=== PATIENT | male | born 1950 | race Caucasian/White ===

== ENCOUNTER 2024-03-30 18:24 | Inpatient (IN) | payer MEDICARE, MEDICAID ==
[~2024-03-30] VITALS: Ht 172.7 cm; Wt 54.4 kg
[~2024-03-30 18:24] MED LIST: DILT120C88 PO; QUET25TA PO
[2024-03-30] MEDS ORDERED: OCTREOTIDE 1,000 MCG in SODIUM CHLORIDE 0.9% 100 ML IV ONE (18:45)
[2024-03-30] MEDS ORDERED: PANTOPRAZOLE SODIUM 40 MG/VIAL IV ONE (18:45)
[2024-03-30] MEDS ORDERED: CEFTRIAXONE 1GM/50ML 50 ML IV ONE (18:45)
[2024-03-30] MEDS: OCTREOTIDE 1,000 MCG in SODIUM CHLORIDE 0.9% 100 ML IV SCH (20:34)
[2024-03-30] MEDS: PANTOPRAZOLE SODIUM 40 MG/VIAL IV NR (20:58)
[2024-03-30] MEDS: CEFTRIAXONE 1GM/50ML 50 ML IV NR (20:58)
[2024-03-30 21:17] LABS: HEMATOCRIT. 46.6 % (42.0-52.0); HEMOGLOBIN. 15.3 g/dL (14.0-18.0); MEAN CORPUSCULAR HEMOGLOBIN 28.1 pg (28.0-32.0); MEAN CORPUSCULAR HGB CONC 32.9 g/dL (31.0-37.0); MEAN CORPUSCULAR VOLUME 85.3 fL (80.0-94.0); MEAN PLATELET VOLUME 8.9 fl (7.4-10.4); PLATELET 186 x1000/uL (130-400); RED BLOOD CELL COUNT 5.46 mill/uL (4.7-6.1); RED CELL DISTRIBUTION WIDTH 17.4 % (11.6-14.6); WHITE BLOOD COUNT 12.1 x1000/uL (4.5-11.0)
[2024-03-30 21:19] LABS: DIFFERENTIAL COMMENT 1
[2024-03-30 21:26] LABS: CHLORIDE 102 mEq/L (98-107); SODIUM 139 mEq/L (136-145)
[2024-03-30 21:27] LABS: CALCIUM 10.2 mg/dL (8.7-10.4); CARBON DIOXIDE 29 mEq/L (21-32)
[2024-03-30 21:30] LABS: PROTHROMBIN TIME 10.8 sec (9.6-11.0)
[2024-03-30 21:32] LABS: CREATININE 1.1 mg/dL (0.6-1.3); GLUCOSE 137 mg/dL (70-105)
[2024-03-30 21:46] LABS: UREA NITROGEN BLOOD 22 mg/dL (9-23)
[2024-03-30 21:48] LABS: ALANINE AMINOTRANSFERASE 19 IU/L (10-49); ALBUMIN 4.6 g/dL (3.2-4.8); ASPARTATE AMINOTRANSFERASE 20 IU/L (<34); BILIRUBIN DIRECT 0.2 mg/dL (<=3.0)
[2024-03-30 21:49] LABS: BILIRUBIN TOTAL 0.7 mg/dL (0.1-1.0); PROTEIN TOTAL 8.6 g/dL (6.0-8.3)
[2024-03-30 22:26] LABS: PLATELET ESTIMATE NORMAL
[2024-03-30 22:27] LABS: ANISOCYTOSIS 1+
[2024-03-30] MEDS ORDERED: NICARDIPINE 50 MG in SODIUM CHLORIDE 0.9% 230 ML IV PRN (23:30)
[2024-03-30] MEDS ORDERED: MORPHINE SULFATE 2 MG/ML INJ (NOT FOR IM USE) IV PRN (23:30)
[2024-03-30] MEDS: ONDANSETRON HCL 4MG/2ML INJ IV PRN (23:53)
[2024-03-31] VITALS (71 sets, daily range): BP systolic 97–171; BP diastolic 67–104; PULSE 85–101; RESP 0–25; TEMP 36.61404–36.9474; O2SAT 87–97
[2024-03-31] MEDS ORDERED: PANTOPRAZOLE 80 MG in SODIUM CHLORIDE 0.9% 100 ML IV SCH
[2024-03-31] MEDS: NICARDIPINE 50 MG in SODIUM CHLORIDE 0.9% 230 ML IV PRN (00:10)
[2024-03-31] MEDS: PANTOPRAZOLE 80 MG in SODIUM CHLORIDE 0.9% 100 ML IV SCH (00:34)
[2024-03-31] MEDS: SODIUM CHLORIDE 0.9% 1,000 ML IV SCH (00:48)
[2024-03-31 03:00] LABS: *AMPHETAMINES SCREEN URINE NEGATIVE (NEGATIVE); *BARBITURATES SCREEN URINE NEGATIVE (NEGATIVE); *BENZODIAZEPINES SCREEN URINE NEGATIVE (NEGATIVE); *COCAINE SCREEN URINE NEGATIVE (NEGATIVE)
[2024-03-31 03:01] LABS: CANNABINOID URINE SCREEN NEGATIVE (NEGATIVE); ECSTASY MDMA SCREEN URINE NEGATIVE (NEGATIVE); METHADONE URINE SCREEN NEGATIVE (NEGATIVE); OPIATES URINE SCREEN NEGATIVE (NEGATIVE); PHENCYCLIDINE URINE SCREEN NEGATIVE (NEGATIVE)
[2024-03-31] MEDS: OCTREOTIDE 1,000 MCG in SODIUM CHLORIDE 0.9% 98 ML IV SCH (10:10)
[2024-03-31] MEDS: PIPERACILLIN/TAZO 3.375G/50ML 50 ML IV SCH (10:12)
[2024-03-31 13:08] LABS: HEMATOCRIT 42.4 % (42.0-52.0); HEMOGLOBIN 13.7 g/dL (14.0-18.0)
[2024-03-31 13:23] LABS: CREATINE KINASE MB FRACTION 1.1 ng/mL (0.5-3.6)
[2024-03-31 13:24] LABS: TROPONIN I HIGH SENSITIVITY 10 ng/L (3.0-53)
[2024-03-31 13:25] LABS: CREATINE KINASE 38 IU/L (46-171)
[2024-03-31 18:33] LABS: HEMATOCRIT 42.5 % (42.0-52.0); HEMOGLOBIN 14.3 g/dL (14.0-18.0)
[2024-03-31] MEDS: PANTOPRAZOLE SODIUM 40 MG/VIAL IV SCH (20:26)
[2024-03-31 22:28] LABS: CREATINE KINASE MB FRACTION 1.5 ng/mL (0.5-3.6)
[2024-04-01] VITALS (96 sets, daily range): BP systolic 107–152; BP diastolic 64–110; PULSE 84–105; RESP 9–24; TEMP 36.55848–37.2252; O2SAT 86–96
[2024-04-01 00:32] LABS: HEMATOCRIT 43.1 % (42.0-52.0); HEMOGLOBIN 14.2 g/dL (14.0-18.0)
[2024-04-01 05:44] LABS: PARTIAL THROMBOPLASTIN TIME 25.5 sec (23.4-31.0); PROTHROMBIN TIME 11.2 sec (9.6-11.0)
[2024-04-01 05:52] LABS: HEMOGLOBIN. 13.8 g/dL (14.0-18.0); MEAN CORPUSCULAR HEMOGLOBIN 28.5 pg (28.0-32.0); MEAN CORPUSCULAR HGB CONC 32.9 g/dL (31.0-37.0); MEAN CORPUSCULAR VOLUME 86.7 fL (80.0-94.0); MEAN PLATELET VOLUME 9.1 fl (7.4-10.4); PLATELET 185 x1000/uL (130-400); RED BLOOD CELL COUNT 4.84 mill/uL (4.7-6.1); RED CELL DISTRIBUTION WIDTH 17.1 % (11.6-14.6); WHITE BLOOD COUNT 11.2 x1000/uL (4.5-11.0)
[2024-04-01 05:53] LABS: CHLORIDE 108 mEq/L (98-107); POTASSIUM 3.9 mEq/L (3.5-5.1); SODIUM 145 mEq/L (136-145)
[2024-04-01 05:56] LABS: CALCIUM 9.2 mg/dL (8.7-10.4); CARBON DIOXIDE 28 mEq/L (21-32)
[2024-04-01 06:01] LABS: CREATININE 1.2 mg/dL (0.6-1.3); GLUCOSE 147 mg/dL (70-105)
[2024-04-01 06:02] LABS: ALBUMIN 4.2 g/dL (3.2-4.8); UREA NITROGEN BLOOD 16 mg/dL (9-23)
[2024-04-01 06:03] LABS: ALANINE AMINOTRANSFERASE 14 IU/L (10-49); ASPARTATE AMINOTRANSFERASE 14 IU/L (<34)
[2024-04-01 06:04] LABS: BILIRUBIN DIRECT 0.3 mg/dL (<=3.0); BILIRUBIN TOTAL 1.1 mg/dL (0.1-1.0); PROTEIN TOTAL 7.8 g/dL (6.0-8.3)
[2024-04-01 06:29] LABS: DIFFERENTIAL COMMENT 1
[2024-04-01] MEDS: IOHEXOL-350 100 ML BOTTLE ONE (08:23)
[2024-04-01] MEDS: NICARDIPINE 40MG/200ML PREMIX 200 ML IV PRN (09:01)
[2024-04-01 12:36] LABS: HEMATOCRIT 39.9 % (42.0-52.0); HEMOGLOBIN 13.1 g/dL (14.0-18.0)
[2024-04-01 12:45] LABS: ANISOCYTOSIS 1+; PLATELET ESTIMATE NORMAL
[2024-04-01 21:01] LABS: HEMATOCRIT 41.8 % (42.0-52.0); HEMOGLOBIN 13.2 g/dL (14.0-18.0)
[2024-04-02] VITALS (82 sets, daily range): BP systolic 89–157; BP diastolic 34–103; PULSE 69–100; RESP 10–30; TEMP 36.3918–37.83636; O2SAT 78–97
[2024-04-02 01:09] LABS: HEMATOCRIT 36.5 % (42.0-52.0)
[2024-04-02 05:01] LABS: HEMATOCRIT. 37.3 % (42.0-52.0); HEMOGLOBIN. 12.2 g/dL (14.0-18.0); MEAN CORPUSCULAR HEMOGLOBIN 28.3 pg (28.0-32.0); MEAN CORPUSCULAR HGB CONC 32.7 g/dL (31.0-37.0); MEAN CORPUSCULAR VOLUME 86.6 fL (80.0-94.0); PLATELET 174 x1000/uL (130-400); RED BLOOD CELL COUNT 4.31 mill/uL (4.7-6.1); RED CELL DISTRIBUTION WIDTH 17.5 % (11.6-14.6); WHITE BLOOD COUNT 11.4 x1000/uL (4.5-11.0)
[2024-04-02 05:02] LABS: POTASSIUM 3.4 mEq/L (3.5-5.1)
[2024-04-02 05:03] LABS: CALCIUM 8.8 mg/dL (8.7-10.4)
[2024-04-02 05:08] LABS: CREATININE 1.3 mg/dL (0.6-1.3)
[2024-04-02 06:04] LABS: DIFFERENTIAL COMMENT 1
[2024-04-02] MEDS: KCL 20MEQ/100ML PREMIX 100 ML IV NR (06:53)
[2024-04-02 11:10] LABS: ANISOCYTOSIS 1+; PLATELET ESTIMATE NORMAL
[2024-04-02] MEDS: LABETALOL IV SCH (12:18)
[2024-04-02] MEDS: DEXT 5% IV SCH (12:18)
[2024-04-02] MEDS: WATER IV SCH (12:18)
[2024-04-02 12:34] LABS: HEMATOCRIT 36.6 % (42.0-52.0)
[2024-04-02 13:08] LABS: BG BASE EXCESS -0.3 mmol/L (-2.0-3.0); BG CARBOXYHEMOGLOBIN 0.6 % (0.5-1.5); BG DEOXYHEMOGLOBIN 8.2 % (0.0-5.0); BG FRACTION INSPIRED OXYGEN 36; BG HCO3 ACT 24.2 mmol/L (21.0-28.0); BG METHEMOGLOBIN 0.3 % (0.5-1.5); BG OXYGEN SATURATION 91.7 % (94.0-98.0); BG OXYHEMOGLOBIN 90.9 % (94.0-98.0); BG PCO2 39.1 mmHg (35.0-48.0); BG PO2 61.9 mmHg (83.0-108.0); BG SAMPLE SITE RIGHT RADIAL; BG TOTAL HEMOGLOBIN 12.4 g/dL (13.5-17.5); BG VENT MODE NASAL CANNULA
[2024-04-02] MEDS ORDERED: NALOXONE HCL 0.4MG/ML VIAL IV PRN (14:00)
[2024-04-02] MEDS: THIAMINE HCL 200 MG in SODIUM CHLORIDE 0.9% 98 ML IV SCH (16:39)
[2024-04-02] MEDS: LORAZEPAM 2MG/ML INJ IV PRN (21:33)
[2024-04-02 23:22] LABS: HEMATOCRIT 32.1 % (42.0-52.0); HEMOGLOBIN 10.5 g/dL (14.0-18.0)
[2024-04-03] VITALS (102 sets, daily range): BP systolic 80–186; BP diastolic 43–128; PULSE 54–98; RESP 14–38; TEMP 36.61404–37.11408; O2SAT 83–99
[2024-04-03] MEDS: DEXT 5% IV PRN (02:16)
[2024-04-03] MEDS: WATER IV PRN (02:16)
[2024-04-03] MEDS: LABETALOL IV PRN (02:16)
[2024-04-03] MEDS: NICARDIPINE 40MG/200ML PREMIX 200 ML IV SCH (02:23)
[2024-04-03 06:01] LABS: CARBON DIOXIDE 28 mEq/L (21-32); CHLORIDE 112 mEq/L (98-107); POTASSIUM 3.2 mEq/L (3.5-5.1); SODIUM 147 mEq/L (136-145)
[2024-04-03 06:02] LABS: CALCIUM 8.6 mg/dL (8.7-10.4)
[2024-04-03 06:03] LABS: PROTHROMBIN TIME 11.6 sec (9.6-11.0)
[2024-04-03 06:06] LABS: CREATININE 1.3 mg/dL (0.6-1.3)
[2024-04-03 06:07] LABS: GLUCOSE 135 mg/dL (70-105); UREA NITROGEN BLOOD 16 mg/dL (9-23)
[2024-04-03 06:08] LABS: ALANINE AMINOTRANSFERASE 7 IU/L (10-49); ASPARTATE AMINOTRANSFERASE 12 IU/L (<34)
[2024-04-03 06:09] LABS: ALBUMIN 3.7 g/dL (3.2-4.8); BILIRUBIN DIRECT 0.4 mg/dL (<=3.0); BILIRUBIN TOTAL 1.3 mg/dL (0.1-1.0); PROTEIN TOTAL 6.8 g/dL (6.0-8.3)
[2024-04-03 06:14] LABS: HEMOGLOBIN. 10.3 g/dL (14.0-18.0); MEAN CORPUSCULAR HEMOGLOBIN 28.8 pg (28.0-32.0); MEAN CORPUSCULAR HGB CONC 33.2 g/dL (31.0-37.0); MEAN CORPUSCULAR VOLUME 86.6 fL (80.0-94.0); PLATELET 138 x1000/uL (130-400); RED BLOOD CELL COUNT 3.58 mill/uL (4.7-6.1); WHITE BLOOD COUNT 12.2 x1000/uL (4.5-11.0)
[2024-04-03] MEDS: DEXTROSE 5% WATER 1,000 ML IV SCH (06:30)
[2024-04-03] MEDS: FUROSEMIDE 40MG/4ML VIAL IVP NR (06:40)
[2024-04-03 06:49] LABS: BG BASE EXCESS 1.3 mmol/L (-2.0-3.0); BG CARBOXYHEMOGLOBIN 0.5 % (0.5-1.5); BG DEOXYHEMOGLOBIN 8.3 % (0.0-5.0); BG FRACTION INSPIRED OXYGEN 40; BG HCO3 ACT 26.3 mmol/L (21.0-28.0); BG METHEMOGLOBIN 0.3 % (0.5-1.5); BG OXYGEN SATURATION 91.6 % (94.0-98.0); BG OXYHEMOGLOBIN 90.9 % (94.0-98.0); BG PCO2 43.7 mmHg (35.0-48.0); BG PH 7.398 (7.350-7.450); BG PO2 63.8 mmHg (83.0-108.0); BG SAMPLE SITE RIGHT RADIAL; BG TOTAL HEMOGLOBIN 11.4 g/dL (13.5-17.5); BG VENT MODE NASAL CANNULA
[2024-04-03 07:03] LABS: DIFFERENTIAL COMMENT 1
[2024-04-03 08:11] LABS: PLATELET ESTIMATE NORMAL
[2024-04-03 11:28] LABS: BG BASE EXCESS 2.3 mmol/L (-2.0-3.0); BG DEOXYHEMOGLOBIN 2.4 % (0.0-5.0); BG FRACTION INSPIRED OXYGEN 100; BG METHEMOGLOBIN 0.3 % (0.5-1.5); BG OXYGEN SATURATION 97.6 % (94.0-98.0); BG OXYHEMOGLOBIN 97.3 % (94.0-98.0); BG PCO2 48.2 mmHg (35.0-48.0); BG PH 7.382 (7.350-7.450); BG SAMPLE SITE LEFT BRACHIAL; BG TOTAL HEMOGLOBIN 11.5 g/dL (13.5-17.5); BG TOTAL RESPIRATORY RATE 17 b/min; BG VENT MODE VENT - AC
[2024-04-03] MEDS: PROPOFOL 10MG/ML 100ML 100 ML IV SCH (12:57)
[2024-04-03] MEDS: IPRATROPIUM/ALBUTEROL 0.5-3(2.5)MG/3ML NEB NEB PRN (13:01)
[2024-04-03 16:09] LABS: BG BASE EXCESS 0.6 mmol/L (-2.0-3.0); BG CARBOXYHEMOGLOBIN 0.3 % (0.5-1.5); BG DEOXYHEMOGLOBIN 10.1 % (0.0-5.0); BG FRACTION INSPIRED OXYGEN 100; BG HCO3 ACT 24.9 mmol/L (21.0-28.0); BG METHEMOGLOBIN 0.3 % (0.5-1.5); BG OXYGEN SATURATION 89.8 % (94.0-98.0); BG OXYHEMOGLOBIN 89.3 % (94.0-98.0); BG PCO2 38.6 mmHg (35.0-48.0); BG PH 7.427 (7.350-7.450); BG SAMPLE SITE RIGHT RADIAL; BG TOTAL HEMOGLOBIN 11.8 g/dL (13.5-17.5); BG VENT MODE VENT - AC
[2024-04-03] MEDS: KCL 20MEQ/100ML PREMIX 100 ML IV SCH (16:59)
[2024-04-04] VITALS (104 sets, daily range): BP systolic 86–144; BP diastolic 53–101; PULSE 57–95; RESP 16–34; TEMP 36.44736–37.44744; O2SAT 89–100
[2024-04-04 05:50] LABS: BASOPHILS % 0.2 % (0.0-2.0); EOSINOPHILS % 1.2 % (0.0-5.0); HEMATOCRIT. 29.2 % (42.0-52.0); HEMOGLOBIN. 9.8 g/dL (14.0-18.0); LYMPHOCYTES % 7.8 % (20.0-50.0); MEAN CORPUSCULAR HEMOGLOBIN 29.3 pg (28.0-32.0); MEAN CORPUSCULAR HGB CONC 33.6 g/dL (31.0-37.0); MEAN CORPUSCULAR VOLUME 87.3 fL (80.0-94.0); MEAN PLATELET VOLUME 9.6 fl (7.4-10.4); MONOCYTES % 8.6 % (2.0-8.0); NEUTROPHILS % 82.2 % (40.0-76.0); PLATELET 125 x1000/uL (130-400); RED BLOOD CELL COUNT 3.35 mill/uL (4.7-6.1); RED CELL DISTRIBUTION WIDTH 17.3 % (11.6-14.6); WHITE BLOOD COUNT 8.5 x1000/uL (4.5-11.0)
[2024-04-04 06:04] LABS: INR 1.1; PROTHROMBIN TIME 11.7 sec (9.6-11.0)
[2024-04-04 06:46] LABS: CHLORIDE 116 mEq/L (98-107); POTASSIUM 3.2 mEq/L (3.5-5.1); SODIUM 145 mEq/L (136-145)
[2024-04-04 06:47] LABS: CARBON DIOXIDE 24 mEq/L (21-32)
[2024-04-04 06:52] LABS: GLUCOSE 124 mg/dL (70-105); UREA NITROGEN BLOOD 41 mg/dL (9-23)
[2024-04-04 06:54] LABS: ALANINE AMINOTRANSFERASE < 7 IU/L (10-49); ALBUMIN 3.1 g/dL (3.2-4.8); ASPARTATE AMINOTRANSFERASE 13 IU/L (<34); BILIRUBIN TOTAL 0.8 mg/dL (0.1-1.0); PROTEIN TOTAL 5.7 g/dL (6.0-8.3)
[2024-04-04 07:39] LABS: CREATININE 1.9 mg/dL (0.6-1.3)
[2024-04-04] MEDS ORDERED: PROPOFOL 10MG/ML 100ML 100 ML IV PRN (10:30)
[2024-04-04] MEDS: SODIUM CHL 0.45% + KCL 20MEQ/L 1,000 ML IV SCH (10:55)
[2024-04-04 14:43] LABS: BG BASE EXCESS -0.7 mmol/L (-2.0-3.0); BG CARBOXYHEMOGLOBIN 0.3 % (0.5-1.5); BG FRACTION INSPIRED OXYGEN 80; BG OXYHEMOGLOBIN 94.7 % (94.0-98.0); BG PCO2 39.7 mmHg (35.0-48.0); BG PH 7.399 (7.350-7.450); BG PO2 72.3 mmHg (83.0-108.0); BG SAMPLE SITE RIGHT RADIAL; BG TOTAL HEMOGLOBIN 10.7 g/dL (13.5-17.5); BG VENT MODE VENT - AC
[2024-04-05] VITALS (106 sets, daily range): BP systolic 99–159; BP diastolic 57–86; PULSE 67–106; RESP 15–42; TEMP 36.9474–38.6142; O2SAT 91–100
[2024-04-05] MEDS: PROPOFOL 10MG/ML 100ML 100 ML IV PRN ×2 (02:06→12:19)
[2024-04-05 06:14] LABS: HEMOGLOBIN. 9.7 g/dL (14.0-18.0); MEAN CORPUSCULAR HGB CONC 32.4 g/dL (31.0-37.0); MEAN CORPUSCULAR VOLUME 86.3 fL (80.0-94.0); MEAN PLATELET VOLUME 9.8 fl (7.4-10.4); PLATELET 131 x1000/uL (130-400); RED BLOOD CELL COUNT 3.48 mill/uL (4.7-6.1); RED CELL DISTRIBUTION WIDTH 17.9 % (11.6-14.6); WHITE BLOOD COUNT 11.2 x1000/uL (4.5-11.0)
[2024-04-05 06:45] LABS: DIFFERENTIAL COMMENT 1
[2024-04-05 10:06] LABS: CALCIUM 8.2 mg/dL (8.7-10.4); POTASSIUM 3.1 mEq/L (3.5-5.1)
[2024-04-05 10:12] LABS: CREATININE 1.2 mg/dL (0.6-1.3)
[2024-04-05] MEDS ORDERED: POTASSIUM CHLORIDE 40 MEQ in DEXT 5% WATER 230 ML IV STA (11:49)
[2024-04-05] MEDS: KCL 20MEQ/100ML X 2 FOR TOTAL KCL 40MEQ/200ML IV SCH (12:17)
[2024-04-05] MEDS ORDERED: PROPOFOL 200MG/20ML VIAL IV ONE (14:10)
[2024-04-05 14:18] LABS: PLATELET ESTIMATE NORMAL
[2024-04-05] MEDS: NICARDIPINE 40MG/200ML PREMIX 200 ML IV PRN (15:49)
[2024-04-05] MEDS ORDERED: ACETAMINOPHEN 650MG/20.3ML UDC PO PRN (21:45)
[2024-04-05] MEDS: ACETAMINOPHEN 650MG SUPP PR PRN (22:19)
[2024-04-05 23:01] LABS: CLARITY URINE CLEAR (CLEAR); COLOR URINE YELLOW (YELLOW); GLUCOSE URINE NEGATIVE (NEGATIVE); KETONES URINE 2+ (NEGATIVE); LEUKOCYTE ESTERASE URINE NEGATIVE (NEGATIVE); NITRITE URINE NEGATIVE (NEGATIVE); OCCULT BLOOD URINE NEGATIVE (NEGATIVE); PH URINE 5.5 (4.5-8.0); PROTEIN URINE TRACE (NEGATIVE); SPECIFIC GRAVITY URINE 1.013 (1.005-1.030); UROBILINOGEN URINE 0.2 E.U./dL (0.2-1.0)
[2024-04-05 23:20] LABS: BACTERIA URINE NONE SEEN; RBC URINE NONE SEEN /hpf (0-2); SQUAMOUS EPITHELIAL CELL URINE FEW /lpf (RARE/1+); WBC URINE NONE SEEN /hpf (0-2)
[2024-04-05 23:25] LABS: WHITE BLOOD CELL CASTS URINE NONE SEEN /lpf
[2024-04-06] VITALS (94 sets, daily range): BP systolic 100–148; BP diastolic 58–115; PULSE 69–89; RESP 14–35; TEMP 36.89184–38.39196; O2SAT 94–100
[2024-04-06 08:48] LABS: CHLORIDE 111 mEq/L (98-107); POTASSIUM 3.5 mEq/L (3.5-5.1); SODIUM 144 mEq/L (136-145)
[2024-04-06 08:49] LABS: CALCIUM 8.3 mg/dL (8.7-10.4); CARBON DIOXIDE 20 mEq/L (21-32)
[2024-04-06 08:54] LABS: CREATININE 1.1 mg/dL (0.6-1.3); GLUCOSE 72 mg/dL (70-105)
[2024-04-06 08:55] LABS: TRIGLYCERIDE 252 mg/dL (0-150); UREA NITROGEN BLOOD 11 mg/dL (9-23)
[2024-04-06 08:57] LABS: PHOSPHORUS 2.2 mg/dL (2.5-4.9)
[2024-04-06 10:04] LABS: HEMATOCRIT. 28.9 % (42.0-52.0); HEMOGLOBIN. 9.6 g/dL (14.0-18.0); MEAN CORPUSCULAR HEMOGLOBIN 28.6 pg (28.0-32.0); MEAN CORPUSCULAR VOLUME 86.6 fL (80.0-94.0); MEAN PLATELET VOLUME 9.4 fl (7.4-10.4); PLATELET 137 x1000/uL (130-400); RED BLOOD CELL COUNT 3.34 mill/uL (4.7-6.1); RED CELL DISTRIBUTION WIDTH 17.2 % (11.6-14.6)
[2024-04-06 10:10] LABS: DIFFERENTIAL COMMENT 1; WHITE BLOOD COUNT 13.1 x1000/uL (4.5-11.0)
[2024-04-06] MEDS ORDERED: POTASSIUM CHLORIDE 20 MEQ in DEXT 5% WATER 90 ML IV ONE (10:15)
[2024-04-06 10:23] LABS: CARBON DIOXIDE 21 mEq/L (21-32); CHLORIDE 110 mEq/L (98-107); POTASSIUM 3.5 mEq/L (3.5-5.1); SODIUM 142 mEq/L (136-145)
[2024-04-06 10:24] LABS: CALCIUM 8.3 mg/dL (8.7-10.4)
[2024-04-06 10:29] LABS: GLUCOSE 91 mg/dL (70-105); UREA NITROGEN BLOOD 11 mg/dL (9-23)
[2024-04-06] MEDS: KCL 20MEQ/100ML PREMIX 100 ML IV ONE (11:09)
[2024-04-06] MEDS: SUCRALFATE 1G TABLET NG SCH (16:56)
[2024-04-06] MEDS: METOCLOPRAMIDE HCL 10MG/2ML VIAL IV SCH (18:55)
[2024-04-06] MEDS ORDERED: PROPOFOL 10MG/ML 100ML 100 ML IV SCH (22:00)
[2024-04-07] VITALS (102 sets, daily range): BP systolic 95–159; BP diastolic 60–101; PULSE 65–94; RESP 15–33; TEMP 36.83628–37.66968; O2SAT 94–100
[2024-04-07 01:35] LABS: PLATELET ESTIMATE NORMAL
[2024-04-07] MEDS: PROPOFOL 10MG/ML 100ML 100 ML IV PRN ×2 (03:17→08:33)
[2024-04-07 05:41] LABS: HEMATOCRIT. 26.7 % (42.0-52.0); HEMOGLOBIN. 9.2 g/dL (14.0-18.0); MEAN CORPUSCULAR HEMOGLOBIN 29.9 pg (28.0-32.0); MEAN CORPUSCULAR HGB CONC 34.6 g/dL (31.0-37.0); MEAN CORPUSCULAR VOLUME 86.4 fL (80.0-94.0); MEAN PLATELET VOLUME 10.1 fl (7.4-10.4); PLATELET 130 x1000/uL (130-400); RED BLOOD CELL COUNT 3.09 mill/uL (4.7-6.1); RED CELL DISTRIBUTION WIDTH 17.2 % (11.6-14.6); WHITE BLOOD COUNT 10.6 x1000/uL (4.5-11.0)
[2024-04-07 05:59] LABS: DIFFERENTIAL COMMENT 1
[2024-04-07 06:25] LABS: CHLORIDE 111 mEq/L (98-107); POTASSIUM 3.4 mEq/L (3.5-5.1); SODIUM 143 mEq/L (136-145)
[2024-04-07 06:26] LABS: CARBON DIOXIDE 21 mEq/L (21-32)
[2024-04-07 06:31] LABS: CREATININE 0.9 mg/dL (0.6-1.3); GLUCOSE 77 mg/dL (70-105)
[2024-04-07 06:32] LABS: TRIGLYCERIDE 268 mg/dL (0-150); UREA NITROGEN BLOOD 8 mg/dL (9-23)
[2024-04-07 06:34] LABS: PHOSPHORUS 2.4 mg/dL (2.5-4.9)
[2024-04-07 07:38] LABS: ANISOCYTOSIS 1+; PLATELET ESTIMATE NORMAL
[2024-04-07] MEDS: MAGNESIUM 2 G PREMIX 50 ML IV NR (12:43)
[2024-04-07] MEDS: POTASSIUM PHOSPHATE 15 MMOL in DEXT 5% WATER 245 ML IV NR (12:43)
[2024-04-07] MEDS: AMLODIPINE 5MG TABLET PO SCH (21:08)
[2024-04-07] MEDS: MORPHINE SULFATE 2 MG/ML INJ (NOT FOR IM USE) IV PRN (23:12)
[2024-04-08] VITALS (103 sets, daily range): BP systolic 87–145; BP diastolic 59–92; PULSE 78–96; RESP 15–26; TEMP 36.72516–37.72524; O2SAT 95–100
[2024-04-08] MEDS: PROPOFOL 10MG/ML 100ML 100 ML IV PRN ×2 (02:49→22:33)
[2024-04-08 06:03] LABS: BASOPHILS % 0.7 % (0.0-2.0); EOSINOPHILS % 6.9 % (0.0-5.0); HEMATOCRIT. 29.1 % (42.0-52.0); LYMPHOCYTES % 6.9 % (20.0-50.0); MEAN CORPUSCULAR HEMOGLOBIN 29.2 pg (28.0-32.0); MEAN CORPUSCULAR HGB CONC 34.3 g/dL (31.0-37.0); MEAN CORPUSCULAR VOLUME 85.3 fL (80.0-94.0); MEAN PLATELET VOLUME 9.4 fl (7.4-10.4); MONOCYTES % 11.7 % (2.0-8.0); NEUTROPHILS % 73.8 % (40.0-76.0); PLATELET 167 x1000/uL (130-400); RED BLOOD CELL COUNT 3.41 mill/uL (4.7-6.1)
[2024-04-08 06:04] LABS: CARBON DIOXIDE 24 mEq/L (21-32); CHLORIDE 108 mEq/L (98-107); POTASSIUM 3.5 mEq/L (3.5-5.1); SODIUM 141 mEq/L (136-145)
[2024-04-08 06:05] LABS: CALCIUM 8.3 mg/dL (8.7-10.4); DIFFERENTIAL COMMENT 1
[2024-04-08 06:10] LABS: CREATININE 0.8 mg/dL (0.6-1.3); GLUCOSE 102 mg/dL (70-105); TRIGLYCERIDE 297 mg/dL (0-150); UREA NITROGEN BLOOD 6 mg/dL (9-23)
[2024-04-08 06:12] LABS: PHOSPHORUS 2.7 mg/dL (2.5-4.9)
[2024-04-08] MEDS ORDERED: NALOXONE HCL 0.4MG/ML VIAL IV PRN (09:30)
[2024-04-08] MEDS: POTASSIUM CHLORIDE 20MEQ TABLET SR PO NR (10:10)
[2024-04-09] VITALS (83 sets, daily range): BP systolic 73–153; BP diastolic 56–89; PULSE 72–103; RESP 14–26; TEMP 36.50292–37.72524; O2SAT 92–100
[2024-04-09] MEDS: DEXT 5%/0.45% NACL 1000ML 1,000 ML IV SCH (00:27)
[2024-04-09 05:49] LABS: HEMATOCRIT. 28.1 % (42.0-52.0); HEMOGLOBIN. 9.7 g/dL (14.0-18.0); MEAN CORPUSCULAR HEMOGLOBIN 29.2 pg (28.0-32.0); MEAN CORPUSCULAR HGB CONC 34.5 g/dL (31.0-37.0); MEAN CORPUSCULAR VOLUME 84.7 fL (80.0-94.0); MEAN PLATELET VOLUME 9.8 fl (7.4-10.4); PLATELET 195 x1000/uL (130-400); RED BLOOD CELL COUNT 3.32 mill/uL (4.7-6.1); RED CELL DISTRIBUTION WIDTH 16.9 % (11.6-14.6); WHITE BLOOD COUNT 7.7 x1000/uL (4.5-11.0)
[2024-04-09 05:50] LABS: CARBON DIOXIDE 26 mEq/L (21-32); CHLORIDE 109 mEq/L (98-107); POTASSIUM 3.6 mEq/L (3.5-5.1); SODIUM 141 mEq/L (136-145)
[2024-04-09 05:51] LABS: CALCIUM 8.4 mg/dL (8.7-10.4)
[2024-04-09 05:55] LABS: CREATININE 0.9 mg/dL (0.6-1.3)
[2024-04-09 05:56] LABS: GLUCOSE 121 mg/dL (70-105); TRIGLYCERIDE 262 mg/dL (0-150); UREA NITROGEN BLOOD 8 mg/dL (9-23)
[2024-04-09 05:58] LABS: PHOSPHORUS 3.1 mg/dL (2.5-4.9)
[2024-04-09 06:02] LABS: INR 0.9; PARTIAL THROMBOPLASTIN TIME 28.5 sec (23.4-31.0); PROTHROMBIN TIME 10.1 sec (9.6-11.0)
[2024-04-09 06:37] LABS: DIFFERENTIAL COMMENT 1
[2024-04-09] MEDS ORDERED: IODIXANOL 320 MG/ML 150ML BOTTLE IV ONE (11:52)
[2024-04-09] MEDS ORDERED: IODIXANOL 320MG/ML 100 ML BOTTLE IV ONE (11:52)
[2024-04-09] MEDS ORDERED: HEPARIN 1000 UNITS/ML 10ML ONE (11:52)
[2024-04-09] MEDS ORDERED: LIDOCAINE HCL 1% 20ML VIAL ONE (11:56)
[2024-04-09 12:15] LABS: ANISOCYTOSIS 1+; PLATELET ESTIMATE NORMAL
[2024-04-09] MEDS ORDERED: FENTANYL CITRATE/PF 50MCG/ML 2ML VIAL ONE (12:49)
[2024-04-09] MEDS ORDERED: CEFAZOLIN SODIUM 1000MG/VIAL ONE (12:50)
[2024-04-09] MEDS ORDERED: STERILE WATER FOR INJECTION 10ML VIAL ONE (12:51)
[2024-04-09] MEDS ORDERED: PROTAMINE SULFATE 10MG/ML VIAL 25ML IV ONE (14:37)
[2024-04-10] VITALS (104 sets, daily range): BP systolic 89–155; BP diastolic 58–116; PULSE 74–111; RESP 13–37; TEMP 36.3918–37.83636; O2SAT 93–100
[2024-04-10] MEDS ORDERED: PROPOFOL 10MG/ML 100ML 100 ML IV PRN
[2024-04-10 06:09] LABS: HEMATOCRIT. 30.7 % (42.0-52.0); HEMOGLOBIN. 10.4 g/dL (14.0-18.0); MEAN CORPUSCULAR HEMOGLOBIN 29.2 pg (28.0-32.0); MEAN CORPUSCULAR VOLUME 85.9 fL (80.0-94.0); MEAN PLATELET VOLUME 9.8 fl (7.4-10.4); PLATELET 198 x1000/uL (130-400); RED BLOOD CELL COUNT 3.58 mill/uL (4.7-6.1); RED CELL DISTRIBUTION WIDTH 16.6 % (11.6-14.6); WHITE BLOOD COUNT 8.5 x1000/uL (4.5-11.0)
[2024-04-10 06:41] LABS: CHLORIDE 109 mEq/L (98-107); POTASSIUM 3.5 mEq/L (3.5-5.1); SODIUM 142 mEq/L (136-145)
[2024-04-10 06:42] LABS: CARBON DIOXIDE 24 mEq/L (21-32)
[2024-04-10 06:47] LABS: GLUCOSE 129 mg/dL (70-105); TRIGLYCERIDE 369 mg/dL (0-150); UREA NITROGEN BLOOD 10 mg/dL (9-23)
[2024-04-10 06:48] LABS: ALANINE AMINOTRANSFERASE 9 IU/L (10-49); ASPARTATE AMINOTRANSFERASE 36 IU/L (<34)
[2024-04-10 06:49] LABS: ALBUMIN 3.1 g/dL (3.2-4.8); BILIRUBIN TOTAL 0.4 mg/dL (0.1-1.0); PROTEIN TOTAL 5.9 g/dL (6.0-8.3)
[2024-04-10 08:16] LABS: DIFFERENTIAL COMMENT 1
[2024-04-10] MEDS ORDERED: POTASSIUM CHLORIDE 20 MEQ in DEXT 5% WATER 90 ML IV ONE (11:30)
[2024-04-10] MEDS: ACETAMINOPHEN 500MG TABLET PO NR (13:12)
[2024-04-10] MEDS: KCL 20MEQ/100ML X 2 FOR TOTAL KCL 40MEQ/200ML IV SCH (13:12)
[2024-04-10 20:40] LABS: ANISOCYTOSIS 1+; PLATELET ESTIMATE NORMAL
[2024-04-11] VITALS (83 sets, daily range): BP systolic 111–172; BP diastolic 69–94; PULSE 70–108; RESP 14–33; TEMP 37.05852–37.61412; O2SAT 91–100
[2024-04-11 06:04] LABS: HEMATOCRIT. 30.1 % (42.0-52.0); HEMOGLOBIN. 10.2 g/dL (14.0-18.0); MEAN CORPUSCULAR HGB CONC 33.8 g/dL (31.0-37.0); MEAN CORPUSCULAR VOLUME 85.8 fL (80.0-94.0); PLATELET 200 x1000/uL (130-400); RED BLOOD CELL COUNT 3.51 mill/uL (4.7-6.1); RED CELL DISTRIBUTION WIDTH 16.2 % (11.6-14.6); WHITE BLOOD COUNT 9.7 x1000/uL (4.5-11.0)
[2024-04-11 06:05] LABS: DIFFERENTIAL COMMENT 1
[2024-04-11 06:15] LABS: CARBON DIOXIDE 26 mEq/L (21-32); CHLORIDE 105 mEq/L (98-107); POTASSIUM 3.3 mEq/L (3.5-5.1); SODIUM 139 mEq/L (136-145)
[2024-04-11 06:17] LABS: CALCIUM 8.2 mg/dL (8.7-10.4)
[2024-04-11 06:21] LABS: CREATININE 0.7 mg/dL (0.6-1.3); GLUCOSE 102 mg/dL (70-105); UREA NITROGEN BLOOD 10 mg/dL (9-23)
[2024-04-11 08:42] LABS: BG BASE EXCESS -0.1 mmol/L (-2.0-3.0); BG CARBOXYHEMOGLOBIN 0.2 % (0.5-1.5); BG DEOXYHEMOGLOBIN 0.6 % (0.0-5.0); BG FRACTION INSPIRED OXYGEN 50; BG METHEMOGLOBIN 0.3 % (0.5-1.5); BG OXYGEN SATURATION 99.4 % (94.0-98.0); BG OXYHEMOGLOBIN 98.9 % (94.0-98.0); BG PCO2 27.7 mmHg (35.0-48.0); BG PH 7.518 (7.350-7.450); BG PO2 203.5 mmHg (83.0-108.0); BG SAMPLE SITE RIGHT RADIAL; BG TOTAL HEMOGLOBIN 10.5 g/dL (13.5-17.5); BG VENT MODE VENT - SIMV
[2024-04-11] MEDS: NICARDIPINE 40MG/200ML PREMIX 200 ML IV SCH (09:15)
[2024-04-11] MEDS: KCL 20MEQ/100ML PREMIX 100 ML IV SCH (10:00)
[2024-04-11] MEDS: METOPROLOL TARTRATE 25MG TABLET NG SCH (10:04)
[2024-04-11 10:36] LABS: BG BASE EXCESS 0.5 mmol/L (-2.0-3.0); BG DEOXYHEMOGLOBIN 2.2 % (0.0-5.0); BG FRACTION INSPIRED OXYGEN 40; BG METHEMOGLOBIN 0.3 % (0.5-1.5); BG OXYGEN SATURATION 97.8 % (94.0-98.0); BG OXYHEMOGLOBIN 97.5 % (94.0-98.0); BG PCO2 34.7 mmHg (35.0-48.0); BG PH 7.458 (7.350-7.450); BG PO2 101.1 mmHg (83.0-108.0); BG SAMPLE SITE LEFT BRACHIAL; BG TOTAL HEMOGLOBIN 10.6 g/dL (13.5-17.5); BG VENT MODE VENT - CPAP
[2024-04-11 11:13] LABS: ANISOCYTOSIS 1+; PLATELET ESTIMATE NORMAL
[2024-04-11] MEDS: SODIUM CHLORIDE 3% FOR INH 4ML NEB INH NR (16:40)
[2024-04-11] MEDS: IPRATROPIUM/ALBUTEROL 0.5-3(2.5)MG/3ML NEB HHN SCH (16:41)
[2024-04-12] VITALS (37 sets, daily range): BP systolic 107–157; BP diastolic 60–92; PULSE 69–89; RESP 15–31; TEMP 36.72516–37.33632; O2SAT 94–100
[2024-04-12] MEDS: ACETYLCYSTEINE 200MG/ML 20% VIAL 4ML INH SCH (00:30)
[2024-04-12 05:45] LABS: HEMATOCRIT. 29.9 % (42.0-52.0); HEMOGLOBIN. 10.1 g/dL (14.0-18.0); MEAN CORPUSCULAR HEMOGLOBIN 28.6 pg (28.0-32.0); MEAN CORPUSCULAR HGB CONC 33.7 g/dL (31.0-37.0); MEAN PLATELET VOLUME 9.6 fl (7.4-10.4); PLATELET 219 x1000/uL (130-400); RED BLOOD CELL COUNT 3.52 mill/uL (4.7-6.1); RED CELL DISTRIBUTION WIDTH 16.1 % (11.6-14.6); WHITE BLOOD COUNT 8.3 x1000/uL (4.5-11.0)
[2024-04-12 06:02] LABS: CARBON DIOXIDE 31 mEq/L (21-32); CHLORIDE 101 mEq/L (98-107); POTASSIUM 3.6 mEq/L (3.5-5.1); SODIUM 137 mEq/L (136-145)
[2024-04-12 06:03] LABS: CALCIUM 8.3 mg/dL (8.7-10.4)
[2024-04-12 06:07] LABS: CREATININE 0.8 mg/dL (0.6-1.3)
[2024-04-12 06:08] LABS: GLUCOSE 131 mg/dL (70-105); UREA NITROGEN BLOOD 10 mg/dL (9-23)
[2024-04-12 06:10] LABS: PHOSPHORUS 2.6 mg/dL (2.5-4.9)
[2024-04-12 06:12] LABS: DIFFERENTIAL COMMENT 1
[2024-04-12] MEDS: CLONIDINE 0.1MG TABLET NG SCH (10:02)
[2024-04-12 16:29] LABS: ANISOCYTOSIS 1+; PLATELET ESTIMATE NORMAL
[2024-04-12] MEDS: MAGNESIUM 2 G PREMIX 50 ML IV NR (18:28)
[2024-04-12] MEDS: POTASSIUM CHLORIDE 20MEQ TABLET SR PO NR (18:37)
[2024-04-13] VITALS (17 sets, daily range): BP systolic 97–163; BP diastolic 68–98; PULSE 74–96; RESP 12–31; TEMP 36.6696–37.83636; O2SAT 90–98
[2024-04-13 06:25] LABS: CARBON DIOXIDE 28 mEq/L (21-32); CHLORIDE 101 mEq/L (98-107); POTASSIUM 3.9 mEq/L (3.5-5.1); SODIUM 135 mEq/L (136-145)
[2024-04-13 06:27] LABS: CALCIUM 8.4 mg/dL (8.7-10.4)
[2024-04-13 06:31] LABS: CREATININE 0.9 mg/dL (0.6-1.3); GLUCOSE 142 mg/dL (70-105)
[2024-04-13 06:32] LABS: UREA NITROGEN BLOOD 14 mg/dL (9-23)
[2024-04-13 07:39] LABS: HEMATOCRIT. 30.7 % (42.0-52.0); HEMOGLOBIN. 10.2 g/dL (14.0-18.0); MEAN CORPUSCULAR HEMOGLOBIN 28.7 pg (28.0-32.0); MEAN CORPUSCULAR HGB CONC 33.3 g/dL (31.0-37.0); MEAN CORPUSCULAR VOLUME 86.1 fL (80.0-94.0); MEAN PLATELET VOLUME 9.9 fl (7.4-10.4); PLATELET 256 x1000/uL (130-400); RED BLOOD CELL COUNT 3.57 mill/uL (4.7-6.1); RED CELL DISTRIBUTION WIDTH 16.4 % (11.6-14.6); WHITE BLOOD COUNT 8.2 x1000/uL (4.5-11.0)
[2024-04-13 07:47] LABS: DIFFERENTIAL COMMENT 1
[2024-04-13 16:12] LABS: ANISOCYTOSIS 1+; PLATELET ESTIMATE NORMAL
[2024-04-13] MEDS: CLONIDINE 0.1MG TABLET NG SCH (20:05)
[2024-04-14] VITALS (16 sets, daily range): BP systolic 114–146; BP diastolic 72–92; PULSE 68–105; RESP 18–29; TEMP 36.78072–37.33632; O2SAT 94–100
[2024-04-14 06:57] LABS: CARBON DIOXIDE 29 mEq/L (21-32); CHLORIDE 101 mEq/L (98-107); POTASSIUM 3.9 mEq/L (3.5-5.1); SODIUM 135 mEq/L (136-145)
[2024-04-14 06:59] LABS: CALCIUM 8.5 mg/dL (8.7-10.4)
[2024-04-14 07:03] LABS: CREATININE 0.8 mg/dL (0.6-1.3); GLUCOSE 125 mg/dL (70-105); UREA NITROGEN BLOOD 16 mg/dL (9-23)
[2024-04-14 07:13] LABS: BASOPHILS % 0.7 % (0.0-2.0); EOSINOPHILS % 4.2 % (0.0-5.0); HEMATOCRIT. 30.5 % (42.0-52.0); LYMPHOCYTES % 7.3 % (20.0-50.0); MEAN CORPUSCULAR HEMOGLOBIN 28.1 pg (28.0-32.0); MEAN CORPUSCULAR HGB CONC 32.7 g/dL (31.0-37.0); MONOCYTES % 12.7 % (2.0-8.0); NEUTROPHILS % 75.1 % (40.0-76.0); PLATELET 238 x1000/uL (130-400); RED BLOOD CELL COUNT 3.54 mill/uL (4.7-6.1); RED CELL DISTRIBUTION WIDTH 16.2 % (11.6-14.6); WHITE BLOOD COUNT 7.8 x1000/uL (4.5-11.0)
[2024-04-15] VITALS (14 sets, daily range): BP systolic 98–174; BP diastolic 62–104; PULSE 76–103; RESP 19–28; TEMP 36.55848–37.28076; O2SAT 82–97
[2024-04-15] MEDS: LOSARTAN 25 MG TABLET PO SCH (14:00)
[2024-04-15] MEDS: CEFAZOLIN 1000MG PREMIX 50 ML IV NR (17:02)
[2024-04-16] VITALS (16 sets, daily range): BP systolic 124–172; BP diastolic 84–114; PULSE 84–113; RESP 17–31; TEMP 36.114–37.11408; O2SAT 94–99
[2024-04-16 06:38] LABS: CHLORIDE 100 mEq/L (98-107); SODIUM 134 mEq/L (136-145)
[2024-04-16 06:39] LABS: CARBON DIOXIDE 25 mEq/L (21-32); PROTHROMBIN TIME 11.4 sec (9.6-11.0)
[2024-04-16 06:40] LABS: CALCIUM 9.4 mg/dL (8.7-10.4)
[2024-04-16 06:44] LABS: CREATININE 0.9 mg/dL (0.6-1.3); GLUCOSE 101 mg/dL (70-105); UREA NITROGEN BLOOD 16 mg/dL (9-23)
[2024-04-16 06:46] LABS: ALANINE AMINOTRANSFERASE 50 IU/L (10-49); ALBUMIN 3.9 g/dL (3.2-4.8); ASPARTATE AMINOTRANSFERASE 39 IU/L (<34)
[2024-04-16 06:47] LABS: BILIRUBIN TOTAL 0.8 mg/dL (0.1-1.0); PROTEIN TOTAL 7.9 g/dL (6.0-8.3)
[2024-04-16 07:16] LABS: BASOPHILS % 1.3 % (0.0-2.0); EOSINOPHILS % 5.8 % (0.0-5.0); HEMATOCRIT. 34.1 % (42.0-52.0); HEMOGLOBIN. 11.1 g/dL (14.0-18.0); LYMPHOCYTES % 8.2 % (20.0-50.0); MEAN CORPUSCULAR HGB CONC 32.5 g/dL (31.0-37.0); MEAN CORPUSCULAR VOLUME 86.3 fL (80.0-94.0); MEAN PLATELET VOLUME 10.4 fl (7.4-10.4); MONOCYTES % 11.9 % (2.0-8.0); NEUTROPHILS % 72.8 % (40.0-76.0); PLATELET 327 x1000/uL (130-400); RED BLOOD CELL COUNT 3.95 mill/uL (4.7-6.1); RED CELL DISTRIBUTION WIDTH 16.1 % (11.6-14.6); WHITE BLOOD COUNT 8.2 x1000/uL (4.5-11.0)
[2024-04-16] MEDS: HYDRALAZINE 20MG/ML VIAL IV NR (09:38)
[2024-04-16] MEDS ORDERED: HYDROMORPHONE HCL/PF 1MG/ML INJ IV PRN ×2 (13:45)
[2024-04-16] MEDS ORDERED: HYDRALAZINE 20MG/ML VIAL IV PRN (13:45)
[2024-04-16] MEDS ORDERED: GLYCOPYRROLATE 0.2 MG/ML 2ML VIAL IV PRN (13:45)
[2024-04-16] MEDS ORDERED: ONDANSETRON HCL 4MG/2ML INJ IV PRN (13:45)
[2024-04-16] MEDS: LABETALOL 5MG/ML 4ML INJ IV PRN (16:11)
[2024-04-17] VITALS (14 sets, daily range): BP systolic 110–177; BP diastolic 71–115; PULSE 72–109; RESP 15–30; TEMP 36.50292–36.89184; O2SAT 92–97
[2024-04-17] MEDS: DEXT 5%/0.45% NACL 1000ML 1,000 ML IV SCH (08:37)
[2024-04-17] MEDS: CLONIDINE 0.1MG TABLET PO SCH (13:09)
[2024-04-17 15:37] LABS: HEMATOCRIT. 34.2 % (42.0-52.0); HEMOGLOBIN. 11.2 g/dL (14.0-18.0); MEAN CORPUSCULAR HEMOGLOBIN 28.8 pg (28.0-32.0); MEAN CORPUSCULAR HGB CONC 32.9 g/dL (31.0-37.0); MEAN CORPUSCULAR VOLUME 87.5 fL (80.0-94.0); MEAN PLATELET VOLUME 9.7 fl (7.4-10.4); PLATELET 341 x1000/uL (130-400); RED CELL DISTRIBUTION WIDTH 16.2 % (11.6-14.6); WHITE BLOOD COUNT 6.6 x1000/uL (4.5-11.0)
[2024-04-17 15:41] LABS: DIFFERENTIAL COMMENT 1
[2024-04-17 15:42] LABS: CARBON DIOXIDE 24 mEq/L (21-32); CHLORIDE 102 mEq/L (98-107); POTASSIUM 4.2 mEq/L (3.5-5.1); SODIUM 136 mEq/L (136-145)
[2024-04-17 15:43] LABS: CALCIUM 9.4 mg/dL (8.7-10.4)
[2024-04-17 15:48] LABS: CREATININE 0.9 mg/dL (0.6-1.3); GLUCOSE 125 mg/dL (70-105); UREA NITROGEN BLOOD 16 mg/dL (9-23)
[2024-04-17 18:53] LABS: PLATELET ESTIMATE NORMAL
[2024-04-17] MEDS: METOCLOPRAMIDE HCL 10MG/2ML VIAL IV SCH (22:13)
[2024-04-17] MEDS: METOPROLOL TARTRATE 50MG TABLET PO SCH (22:14)
[2024-04-18] VITALS (11 sets, daily range): BP systolic 122–158; BP diastolic 76–101; PULSE 70–118; RESP 19–31; TEMP 36.44736–36.89184; O2SAT 93–96
[2024-04-18 02:55] LABS: HEMATOCRIT. 35.9 % (42.0-52.0); HEMOGLOBIN. 11.6 g/dL (14.0-18.0); MEAN CORPUSCULAR HEMOGLOBIN 27.8 pg (28.0-32.0); MEAN CORPUSCULAR HGB CONC 32.2 g/dL (31.0-37.0); MEAN CORPUSCULAR VOLUME 86.2 fL (80.0-94.0); MEAN PLATELET VOLUME 9.2 fl (7.4-10.4); PLATELET 339 x1000/uL (130-400); RED BLOOD CELL COUNT 4.16 mill/uL (4.7-6.1); WHITE BLOOD COUNT 7.1 x1000/uL (4.5-11.0)
[2024-04-18 02:58] LABS: CHLORIDE 102 mEq/L (98-107); POTASSIUM 3.9 mEq/L (3.5-5.1); SODIUM 136 mEq/L (136-145)
[2024-04-18 02:59] LABS: CALCIUM 9.4 mg/dL (8.7-10.4); CARBON DIOXIDE 26 mEq/L (21-32)
[2024-04-18 03:04] LABS: GLUCOSE 111 mg/dL (70-105); UREA NITROGEN BLOOD 18 mg/dL (9-23)
[2024-04-18 03:20] LABS: INR 1.1; PROTHROMBIN TIME 12.1 sec (9.6-11.0)
[2024-04-18 04:55] LABS: PLATELET ESTIMATE NORMAL
[2024-04-18] MEDS ORDERED: ASPIRIN 81MG EC TABLET PO SCH (09:00)
[2024-04-18] MEDS ORDERED: LIDOCAINE HCL 1% 10 MG/ML 10ML VIAL ONE (11:22)
[2024-04-18] MEDS ORDERED: PROPOFOL 200MG/20ML VIAL IV ONE ×2 (11:22→11:43)
[2024-04-18] MEDS ORDERED: CEFAZOLIN 1,000 MG in DEXTROSE 5% WATER 50 ML IV SCH (11:30)
[2024-04-18] MEDS ORDERED: CEFAZOLIN SODIUM 1000MG/VIAL ONE (11:43)
[2024-04-18] MEDS: ACETAMINOPHEN 650MG/20.3ML UDC GT PRN (16:54)
[2024-04-18] MEDS ORDERED: NALOXONE HCL 0.4MG/ML VIAL IV PRN (20:00)
[2024-04-18] MEDS: HYDRALAZINE 20MG/ML VIAL IV PRN (20:36)
[2024-04-18] MEDS: MORPHINE SULFATE 2 MG/ML INJ (NOT FOR IM USE) IV PRN (20:36)
[2024-04-18] MEDS: METOPROLOL TARTRATE 25MG TABLET PO SCH (21:00)
[2024-04-19] VITALS (12 sets, daily range): BP systolic 135–163; BP diastolic 83–107; PULSE 80–120; RESP 15–28; TEMP 36.114–36.83628; O2SAT 92–96
[2024-04-19] MEDS ORDERED: PIPERACILLIN/TAZOBACTAM 3.375 G in DEXT 5% WATER 100 ML IV SCH (06:30)
[2024-04-19] MEDS: DEXT 5%/0.45% NACL 1000ML 1,000 ML IV SCH (06:40)
[2024-04-19] MEDS: PIPERACILLIN/TAZO 3.375G/50ML IV SCH (08:02)
[2024-04-19] MEDS: METOPROLOL TARTRATE 5MG/5ML VIAL IV NR (10:55)
[2024-04-19 12:30] LABS: HEMATOCRIT. 35.2 % (42.0-52.0); HEMOGLOBIN. 11.6 g/dL (14.0-18.0); MEAN CORPUSCULAR HEMOGLOBIN 28.8 pg (28.0-32.0); MEAN CORPUSCULAR HGB CONC 32.9 g/dL (31.0-37.0); MEAN CORPUSCULAR VOLUME 87.5 fL (80.0-94.0); MEAN PLATELET VOLUME 9.4 fl (7.4-10.4); PLATELET 343 x1000/uL (130-400); RED BLOOD CELL COUNT 4.02 mill/uL (4.7-6.1); RED CELL DISTRIBUTION WIDTH 15.8 % (11.6-14.6); WHITE BLOOD COUNT 8.4 x1000/uL (4.5-11.0)
[2024-04-19 12:36] LABS: DIFFERENTIAL COMMENT 1
[2024-04-19] MEDS: DIATR MEGLU/DIATRIZOATE SOLN 30ML PO NR (15:58)
[2024-04-19] MEDS: METOPROLOL TARTRATE 5MG/5ML VIAL IV SCH (17:02)
[2024-04-19 17:11] LABS: ANISOCYTOSIS 1+; PLATELET ESTIMATE NORMAL
[2024-04-19] MEDS: IOHEXOL-350 100 ML BOTTLE ONE (22:55)
[2024-04-20] VITALS (12 sets, daily range): BP systolic 143–175; BP diastolic 77–100; PULSE 68–91; RESP 17–27; TEMP 36.3918–37.503; O2SAT 92–98
[2024-04-20 07:28] LABS: HEMOGLOBIN. 11.6 g/dL (14.0-18.0); MEAN CORPUSCULAR HGB CONC 32.2 g/dL (31.0-37.0); MEAN CORPUSCULAR VOLUME 86.9 fL (80.0-94.0); MEAN PLATELET VOLUME 9.8 fl (7.4-10.4); PLATELET 288 x1000/uL (130-400); RED BLOOD CELL COUNT 4.15 mill/uL (4.7-6.1); RED CELL DISTRIBUTION WIDTH 16.3 % (11.6-14.6); WHITE BLOOD COUNT 7.6 x1000/uL (4.5-11.0)
[2024-04-20 07:30] LABS: CHLORIDE 106 mEq/L (98-107); SODIUM 140 mEq/L (136-145)
[2024-04-20 07:31] LABS: CALCIUM 9.3 mg/dL (8.7-10.4); CARBON DIOXIDE 24 mEq/L (21-32)
[2024-04-20 07:36] LABS: DIFFERENTIAL COMMENT 1; GLUCOSE 127 mg/dL (70-105)
[2024-04-20 07:37] LABS: UREA NITROGEN BLOOD 10 mg/dL (9-23)
[2024-04-20] MEDS: KCL 20MEQ/100ML PREMIX 100 ML IV SCH (11:06)
[2024-04-20] MEDS: MIRTAZAPINE 15MG TABLET PO SCH (20:26)
[2024-04-21] VITALS (10 sets, daily range): BP systolic 133–168; BP diastolic 74–102; PULSE 62–98; RESP 15–30; TEMP 35.94732–37.05852; O2SAT 89–99
[2024-04-21] MEDS: HALOPERIDOL LACTATE 5MG/ML VIAL IM PRN (12:29)
[2024-04-21 13:59] LABS: HEMATOCRIT. 32.9 % (42.0-52.0); MEAN CORPUSCULAR HGB CONC 33.5 g/dL (31.0-37.0); MEAN CORPUSCULAR VOLUME 86.7 fL (80.0-94.0); MEAN PLATELET VOLUME 9.4 fl (7.4-10.4); PLATELET 235 x1000/uL (130-400); RED BLOOD CELL COUNT 3.79 mill/uL (4.7-6.1); RED CELL DISTRIBUTION WIDTH 16.1 % (11.6-14.6); WHITE BLOOD COUNT 5.7 x1000/uL (4.5-11.0)
[2024-04-21 14:02] LABS: DIFFERENTIAL COMMENT 1
[2024-04-21 14:19] LABS: CARBON DIOXIDE 22 mEq/L (21-32); CHLORIDE 105 mEq/L (98-107); POTASSIUM 3.1 mEq/L (3.5-5.1); SODIUM 136 mEq/L (136-145)
[2024-04-21 14:20] LABS: CALCIUM 8.9 mg/dL (8.7-10.4)
[2024-04-21 14:25] LABS: GLUCOSE 123 mg/dL (70-105); UREA NITROGEN BLOOD 5 mg/dL (9-23)
[2024-04-21 14:27] LABS: PHOSPHORUS 2.5 mg/dL (2.5-4.9)
[2024-04-21 18:33] LABS: PLATELET ESTIMATE NORMAL
[2024-04-21 19:30] LABS: PLATELET ESTIMATE NORMAL
[2024-04-22] VITALS: BP 151/97; PULSE 82; RESP 20; TEMP 36.33624; O2SAT 96
[2024-04-22 04:00] VITALS: BP 175/87; PULSE 85; RESP 18; TEMP 36.16956; O2SAT 96
[2024-04-22] MEDS: LIDOCAINE HCL 1% 10 MG/ML 10ML VIAL ONE (07:56)
[2024-04-22] MEDS: IOHEXOL-350 100 ML BOTTLE ONE (07:56)
[2024-04-22 08:00] VITALS: BP 153/97; PULSE 82; RESP 18; TEMP 35.89176; O2SAT 98
[2024-04-22 08:13] LABS: CARBON DIOXIDE 24 mEq/L (21-32); CHLORIDE 105 mEq/L (98-107); POTASSIUM 3.1 mEq/L (3.5-5.1); SODIUM 138 mEq/L (136-145)
[2024-04-22 08:15] LABS: CALCIUM 8.9 mg/dL (8.7-10.4)
[2024-04-22 08:16] LABS: BASOPHILS % 2.2 % (0.0-2.0); EOSINOPHILS % 11.3 % (0.0-5.0); HEMATOCRIT. 33.2 % (42.0-52.0); HEMOGLOBIN. 10.7 g/dL (14.0-18.0); LYMPHOCYTES % 10.9 % (20.0-50.0); MEAN CORPUSCULAR HEMOGLOBIN 28.2 pg (28.0-32.0); MEAN CORPUSCULAR HGB CONC 32.4 g/dL (31.0-37.0); MEAN CORPUSCULAR VOLUME 87.2 fL (80.0-94.0); MEAN PLATELET VOLUME 9.5 fl (7.4-10.4); MONOCYTES % 12.2 % (2.0-8.0); NEUTROPHILS % 63.4 % (40.0-76.0); PLATELET 229 x1000/uL (130-400); RED CELL DISTRIBUTION WIDTH 16.5 % (11.6-14.6); WHITE BLOOD COUNT 5.7 x1000/uL (4.5-11.0)
[2024-04-22 08:20] LABS: GLUCOSE 109 mg/dL (70-105); UREA NITROGEN BLOOD 7 mg/dL (9-23)
[2024-04-22] MEDS ORDERED: KCL 20MEQ/100ML PREMIX 100 ML IV SCH (09:15)
[2024-04-22 12:00] VITALS: BP 143/90; PULSE 61; RESP 18; TEMP 36.55848; O2SAT 98
[2024-04-22] MEDS: POTASSIUM CHLORIDE 40 MEQ in SODIUM CHLORIDE 0.9% 230 ML IV NR (12:29)
[2024-04-22 16:00] VITALS: BP 158/88; PULSE 72; RESP 18; TEMP 36.9474; O2SAT 98
[2024-04-22] MEDS: MAGNESIUM 2 G PREMIX 50 ML IV NR (17:48)
[2024-04-22] MEDS: HYDRALAZINE 20MG/ML VIAL IV SCH (17:50)
[2024-04-22] MEDS ORDERED: HYDRALAZINE 20MG/ML VIAL IV SCH (18:00)
[2024-04-22 20:00] VITALS: BP 159/99; PULSE 85; RESP 20; TEMP 36.00288; O2SAT 97
[2024-04-22] MEDS: CLONIDINE 0.2MG TABLET PO SCH (21:00)
[2024-04-23] VITALS: BP 122/76; PULSE 91; RESP 19; TEMP 36.33624; O2SAT 98
[2024-04-23 04:00] VITALS: BP 129/79; PULSE 75; RESP 21; TEMP 36.55848; O2SAT 98
[2024-04-23 07:41] LABS: CARBON DIOXIDE 24 mEq/L (21-32); CHLORIDE 104 mEq/L (98-107); POTASSIUM 3.3 mEq/L (3.5-5.1); SODIUM 137 mEq/L (136-145)
[2024-04-23 07:42] LABS: CALCIUM 8.9 mg/dL (8.7-10.4)
[2024-04-23 07:47] LABS: GLUCOSE 92 mg/dL (70-105); UREA NITROGEN BLOOD 7 mg/dL (9-23)
[2024-04-23 07:49] LABS: PHOSPHORUS 2.6 mg/dL (2.5-4.9)
[2024-04-23 08:04] VITALS: BP 134/82; PULSE 76; RESP 16; TEMP 37.00296; O2SAT 98
[2024-04-23 08:53] LABS: HEMATOCRIT. 33.9 % (42.0-52.0); MEAN CORPUSCULAR HEMOGLOBIN 28.1 pg (28.0-32.0); MEAN CORPUSCULAR HGB CONC 32.6 g/dL (31.0-37.0); MEAN CORPUSCULAR VOLUME 86.2 fL (80.0-94.0); MEAN PLATELET VOLUME 9.8 fl (7.4-10.4); PLATELET 217 x1000/uL (130-400); RED BLOOD CELL COUNT 3.93 mill/uL (4.7-6.1); RED CELL DISTRIBUTION WIDTH 16.3 % (11.6-14.6); WHITE BLOOD COUNT 6.7 x1000/uL (4.5-11.0)
[2024-04-23 09:00] LABS: DIFFERENTIAL COMMENT 1
[2024-04-23] MEDS: KCL 20MEQ/100ML PREMIX 100 ML IV SCH (10:45)
[2024-04-23 12:05] VITALS: BP 142/84; PULSE 80; RESP 18; TEMP 36.78072; O2SAT 98
[2024-04-23] MEDS ORDERED: LORAZEPAM 2MG/ML INJ IV PRN (13:00)
[2024-04-23 16:00] VITALS: BP 152/86; PULSE 102; RESP 18; TEMP 36.22512; O2SAT 98
[2024-04-23 17:00] LABS: ANISOCYTOSIS 1+; PLATELET ESTIMATE NORMAL
[2024-04-23 20:00] VITALS: BP 160/71; PULSE 69; RESP 19; TEMP 37.00296; O2SAT 97
[2024-04-23] MEDS: RISPERIDONE 1MG TABLET PO SCH (21:04)
[2024-04-24] VITALS: BP 133/69; PULSE 85; RESP 19; TEMP 36.89184; O2SAT 99
[2024-04-24 04:00] VITALS: BP 164/82; RESP 18; TEMP 36.9474; O2SAT 94
[2024-04-24 07:00] LABS: CHLORIDE 107 mEq/L (98-107); POTASSIUM 3.2 mEq/L (3.5-5.1); SODIUM 137 mEq/L (136-145)
[2024-04-24 07:01] LABS: CARBON DIOXIDE 22 mEq/L (21-32)
[2024-04-24 07:06] LABS: GLUCOSE 125 mg/dL (70-105); UREA NITROGEN BLOOD 7 mg/dL (9-23)
[2024-04-24 08:59] LABS: HEMATOCRIT. 34.1 % (42.0-52.0); HEMOGLOBIN. 11.4 g/dL (14.0-18.0); MEAN CORPUSCULAR HEMOGLOBIN 28.7 pg (28.0-32.0); MEAN CORPUSCULAR HGB CONC 33.4 g/dL (31.0-37.0); MEAN CORPUSCULAR VOLUME 85.9 fL (80.0-94.0); MEAN PLATELET VOLUME 9.4 fl (7.4-10.4); PLATELET 208 x1000/uL (130-400); RED BLOOD CELL COUNT 3.97 mill/uL (4.7-6.1); RED CELL DISTRIBUTION WIDTH 16.2 % (11.6-14.6); WHITE BLOOD COUNT 5.5 x1000/uL (4.5-11.0)
[2024-04-24 09:11] LABS: DIFFERENTIAL COMMENT 1
[2024-04-24] MEDS: POTASSIUM CHLORIDE 20MEQ/PACKET PO NR (11:02)
[2024-04-24 12:00] VITALS: BP 117/78; PULSE 87; RESP 20; TEMP 36.6696; O2SAT 96
[2024-04-24 16:00] VITALS: BP 124/68; PULSE 90; RESP 18; TEMP 36.114; O2SAT 96
[2024-04-24 20:00] VITALS: BP 131/70; PULSE 90; RESP 18; TEMP 36.3918; O2SAT 96
[2024-04-24] MEDS: AMLODIPINE 2.5MG TABLET PO SCH (20:18)
[2024-04-24] MEDS: METOPROLOL TARTRATE 25MG TABLET PO SCH (20:19)
[2024-04-24 21:16] LABS: ANISOCYTOSIS 1+; PLATELET ESTIMATE NORMAL
[2024-04-25] VITALS (8 sets, daily range): BP systolic 88–144; BP diastolic 51–96; PULSE 75–103; RESP 16–22; TEMP 36.114–36.6696; O2SAT 93–97
[2024-04-25] MEDS: SODIUM CHLORIDE 0.9% 500 ML IV NR (04:36)
[2024-04-25] MEDS: MIDODRINE HCL 5MG TABLET PO SCH (06:00)
[2024-04-25] MEDS: SODIUM CHLORIDE 0.9% 1,000 ML IV NR (06:05)
[2024-04-25 12:24] LABS: CHLORIDE 112 mEq/L (98-107); POTASSIUM 3.5 mEq/L (3.5-5.1); SODIUM 139 mEq/L (136-145)
[2024-04-25 12:25] LABS: CALCIUM 8.5 mg/dL (8.7-10.4); CARBON DIOXIDE 22 mEq/L (21-32)
[2024-04-25 12:30] LABS: CREATININE 1.1 mg/dL (0.6-1.3); GLUCOSE 97 mg/dL (70-105); UREA NITROGEN BLOOD 9 mg/dL (9-23)
[2024-04-25 12:43] LABS: BASOPHILS % 1.7 % (0.0-2.0); EOSINOPHILS % 12.2 % (0.0-5.0); HEMATOCRIT. 31.3 % (42.0-52.0); HEMOGLOBIN. 10.4 g/dL (14.0-18.0); LYMPHOCYTES % 14.2 % (20.0-50.0); MEAN CORPUSCULAR HEMOGLOBIN 28.7 pg (28.0-32.0); MEAN CORPUSCULAR HGB CONC 33.1 g/dL (31.0-37.0); MEAN CORPUSCULAR VOLUME 86.7 fL (80.0-94.0); MEAN PLATELET VOLUME 9.4 fl (7.4-10.4); MONOCYTES % 14.9 % (2.0-8.0); PLATELET 178 x1000/uL (130-400); RED BLOOD CELL COUNT 3.61 mill/uL (4.7-6.1); RED CELL DISTRIBUTION WIDTH 16.9 % (11.6-14.6); WHITE BLOOD COUNT 5.3 x1000/uL (4.5-11.0)
[2024-04-26] VITALS: BP 124/81; PULSE 96; RESP 16; TEMP 36.33624; O2SAT 95
[2024-04-26 04:00] VITALS: BP 110/64; PULSE 72; RESP 18; TEMP 36.22512; O2SAT 97
[2024-04-26 08:00] VITALS: BP 150/90; PULSE 86; RESP 18; TEMP 36.9474; O2SAT 99
[2024-04-26] MEDS: MIDODRINE HCL 5MG TABLET PO SCH (08:31)
[2024-04-26 12:08] VITALS: BP 144/94; PULSE 94; RESP 18; TEMP 36.55848; O2SAT 97
[2024-04-26 16:05] VITALS: BP 160/90; PULSE 102; RESP 18; TEMP 36.78072
[2024-04-26] MEDS: MIDODRINE HCL 2.5MG TABLET PO SCH (16:58)
[2024-04-26 20:00] VITALS: BP 152/98; PULSE 98; RESP 16; TEMP 36.6696; O2SAT 96
[2024-04-27] VITALS: BP 162/95; PULSE 94; RESP 18; TEMP 36.44736; O2SAT 95
[2024-04-27 04:00] VITALS: BP 190/110; PULSE 97; RESP 18; TEMP 36.28068; O2SAT 94
[2024-04-27 08:00] VITALS: BP 160/94; PULSE 61; RESP 20; TEMP 37.72524; O2SAT 98
[2024-04-27] MEDS: AMLODIPINE 2.5MG TABLET PO SCH ×2 (09:33→20:36)
[2024-04-27 12:00] VITALS: BP 156/106; PULSE 100; RESP 18; TEMP 36.28068; O2SAT 96
[2024-04-27 16:00] VITALS: BP 179/103; PULSE 100; RESP 18; TEMP 36.00288; O2SAT 95
[2024-04-28 02:01] VITALS: BP 166/105; PULSE 118; RESP 19; TEMP 36.00288; O2SAT 95
[2024-04-28] MEDS: DIATR MEGLU/DIATRIZOATE SOLN 30ML ONE (08:56)
[2024-04-28 09:31] VITALS: BP 155/94; PULSE 120; RESP 20; TEMP 36.50292; O2SAT 94
[2024-04-28 12:00] VITALS: BP 142/83; PULSE 106; RESP 20; TEMP 36.55848; O2SAT 96
[2024-04-28] MEDS ORDERED: AMLO2.5T45 PO (14:30)
[2024-04-28] MEDS ORDERED: RISP1 PO (14:30)
[2024-04-28] MEDS ORDERED: SUCR1TAB NG (14:30)
[2024-04-28] MEDS ORDERED: ASPI-1406 PO (14:30)
[2024-04-28] MEDS ORDERED: MIRT-89 PO (14:30)
[2024-04-28 16:00] VITALS: BP 153/79; PULSE 99; RESP 20; TEMP 36.61404; O2SAT 95
[2024-04-28] MEDS: NA PHOS,M-B/NA PHOS,DI-BA ENEMA 118ML PR NR (16:10)
[2024-04-28 18:16] VITALS: BP 143/91; PULSE 104; TEMP 98; O2SAT 96
== END 2024-04-28 18:25 | DRG 268 ==
LOC: ER 18:24 → EDBEDREQ 21:19 → EDBEDREQTM 21:19 → EDBEDREQSVC 23:40 → MICUNO 03-31 05:52 → 5EST 04-12 19:49 → 8WST 04-21 14:52
PROVIDERS: ADMIT Internal Medicine; ATTEND Internal Medicine
PROC: 5A1955Z Respiratory Ventilation, Greater than 96 Consecutive Hours (ICD-10-PCS; principal; 2024-04-03)
PROC: 0BH17EZ Insertion of Endotracheal Airway into Trachea, Via Natural or Artificial Opening (ICD-10-PCS; 2024-04-03)
PROC: 02HV33Z Insertion of Infusion Device into Superior Vena Cava, Percutaneous Approach (ICD-10-PCS; 2024-04-03)
PROC: B548ZZA Ultrasonography of Superior Vena Cava, Guidance (ICD-10-PCS; 2024-04-03)
PROC: 5A0935A Assistance with Respiratory Ventilation, Less than 24 Consecutive Hours, High Flow/Velocity Cannula (ICD-10-PCS; 2024-04-03)
PROC: 0DB48ZX Excision of Esophagogastric Junction, Via Natural or Artificial Opening Endoscopic, Diagnostic (ICD-10-PCS; 2024-04-05)
PROC: 0DB38ZX Excision of Lower Esophagus, Via Natural or Artificial Opening Endoscopic, Diagnostic (ICD-10-PCS; 2024-04-05)
PROC: B41D1ZZ Fluoroscopy of Aorta and Bilateral Lower Extremity Arteries using Low Osmolar Contrast (ICD-10-PCS; 2024-04-09)
PROC: 30233N1 Transfusion of Nonautologous Red Blood Cells into Peripheral Vein, Percutaneous Approach (ICD-10-PCS; 2024-04-09)
PROC: 04V03DZ Restriction of Abdominal Aorta with Intraluminal Device, Percutaneous Approach (ICD-10-PCS; 2024-04-09)
PROC: 5A0935A Assistance with Respiratory Ventilation, Less than 24 Consecutive Hours, High Flow/Velocity Cannula (ICD-10-PCS; 2024-04-11)
PROC: 5A0935A Assistance with Respiratory Ventilation, Less than 24 Consecutive Hours, High Flow/Velocity Cannula (ICD-10-PCS; 2024-04-12)
PROC: 5A0935A Assistance with Respiratory Ventilation, Less than 24 Consecutive Hours, High Flow/Velocity Cannula (ICD-10-PCS; 2024-04-13)
PROC: 0DH64UZ Insertion of Feeding Device into Stomach, Percutaneous Endoscopic Approach (ICD-10-PCS; 2024-04-18)
DX: I16.1 Hypertensive emergency (principal); A41.9 Sepsis, unspecified organism; J96.01 Acute respiratory failure with hypoxia; K29.01 Acute gastritis with bleeding; J69.0 Pneumonitis due to inhalation of food and vomit; G93.41 Metabolic encephalopathy; I26.94 Multiple subsegmental thrombotic pulmonary emboli without acute cor pulmonale; I21.4 Non-ST elevation (NSTEMI) myocardial infarction; N17.0 Acute kidney failure with tubular necrosis; G82.50 Quadriplegia, unspecified; K22.11 Ulcer of esophagus with bleeding; E46 Unspecified protein-calorie malnutrition; E87.0 Hyperosmolality and hypernatremia; N39.0 Urinary tract infection, site not specified; R47.01 Aphasia; K94.23 Gastrostomy malfunction; Z68.1 Body mass index [BMI] 19.9 or less, adult; I47.20 Ventricular tachycardia, unspecified; K22.10 Ulcer of esophagus without bleeding; I71.40 Abdominal aortic aneurysm, without rupture, unspecified; I10 Essential (primary) hypertension; K74.60 Unspecified cirrhosis of liver; E11.65 Type 2 diabetes mellitus with hyperglycemia; K44.9 Diaphragmatic hernia without obstruction or gangrene; J44.9 Chronic obstructive pulmonary disease, unspecified; I25.10 Atherosclerotic heart disease of native coronary artery without angina pectoris; J43.2 Centrilobular emphysema; K57.30 Diverticulosis of large intestine without perforation or abscess without bleeding; K82.8 Other specified diseases of gallbladder; E87.6 Hypokalemia; E83.39 Other disorders of phosphorus metabolism; E78.1 Pure hyperglyceridemia; F10.20 Alcohol dependence, uncomplicated; R25.2 Cramp and spasm; F09 Unspecified mental disorder due to known physiological condition; F17.200 Nicotine dependence, unspecified, uncomplicated; R13.12 Dysphagia, oropharyngeal phase; S60.822A Blister (nonthermal) of left wrist, initial encounter; Z87.19 Personal history of other diseases of the digestive system; Z78.1 Physical restraint status; Z79.899 Other long term (current) drug therapy; Z86.711 Personal history of pulmonary embolism; Z86.718 Personal history of other venous thrombosis and embolism; Z86.79 Personal history of other diseases of the circulatory system; X58.XXXA Exposure to other specified factors, initial encounter; Y93.89 Activity, other specified; Y92.89 Other specified places as the place of occurrence of the external cause; Y99.8 Other external cause status; Y83.8 Other surgical procedures as the cause of abnormal reaction of the patient, or of later complication, without mention of misadventure at the time of the procedure; Y82.8 Other medical devices associated with adverse incidents
CPT/HCPCS: 31500; 34703; 36415; 36573; 36600; 71045; 71275; 74018; 74174; 75630; 76700; 76770; 80048; 80053; 80076; 80305; 81003; 82270; 82375; 82550; 82553; 82805; 82962; 83605; 83735; 84100; 84478; 84484; 85014; 85018; 85025; 85347; 86850; 86900; 86920; 87070; 87106; 88305; 88312; 88313; 92610; 93005; 93306; 93970; 94003; 94640; 99291; A4216; A6261; C1725; C1760; C1769; C1887; C1893; J0360; J0690; J0696; J1630; J1644; J1940; J2060; J2270; J2354; J2405; J2470; J2543; J2704; J2720; J2765; J3010; J3411; J3475; J3480; J3490; J7050; J7060; J7070; J7608; P9016; Q9963; Q9967; C1713; C1874; C1889; C1892